=== PATIENT | female | born 1970 | race Caucasian/White ===

== ENCOUNTER 2021-04-21 10:36 | Emergency (ER) | payer MEDICARE, MEDICAID ==
[2021-04-21 11:19] LABS: PTT,PARTIAL THROMBOPLSTIN TIME 21.7 SEC (23.2-32.3)
[2021-04-21 11:24] LABS: CHLORIDE,CL 106 mEq/L (98-106); SODIUM,NA 145 mEq/L (136-145)
--- NOTE | 2021-04-21 12:09 | EDM.PDOC ---
ED HPI GENERAL MEDICAL PROBLEM - General Chief Complaint: General Stated Complaint: RT SIDE OF FACE DOESN'T LOOK RIGHT Time Seen by Provider: 04/21/21 11:15 Source of Information: Reports: Patient, RN History Limitations: Reports: No Limitations - History of Present Illness INITIAL COMMENTS - FREE TEXT/NARRATIVE: Pt states that she noted that she felt off balance and would go to the left yesterday after noon about 3-4 pm. She didnt think much off it until she woke up this morning and noted that she has left eye drooping and couldn't see as well out of the left lateral vision. She has also noted some decrease in sensation to the left side of face, Has difficulty with finger to nose using the left side arm versus the right side. When having her walk down the hallway she did have some difficulty with going to the left side. She is alert and oriented. NIHSS at this time is 5. She does feel that she is under a lot of stress as today is the 1 year anniversary of the suicide of her daughter. She denies any previous stroke. No family history of strokes. Onset: Gradual Onset Date: 04/20/21 Onset Time: 15:00 Location: Reports: Face, Upper Extremity, Left, Lower Extremity, Left Associated Symptoms: Denies: Confusion, Headaches - Related Data Allergies Allergy/AdvReac Type Severity Reaction Status Date / Time latex Allergy Rash Verified 04/21/21 11:06 morphine Allergy Cannot Verified 04/21/21 11:06 Remember Home Meds: Home Meds Azelastine HCl 137 mcg NS BID 04/21/21 [History] Baclofen 10 mg PO BID 04/21/21 [History] Brexpiprazole [Rexulti] 2 mg PO DAILY 04/21/21 [History] Cholecalciferol (Vitamin D3) [Vitamin D3] 5,000 unit PO DAILY 04/21/21 [History] Desvenlafaxine Succinate [Pristiq ER] 50 mg PO DAILY 04/21/21 [History] Esomeprazole Magnesium [Nexium] 40 mg PO DAILY 04/21/21 [History] Fexofenadine [Thania] 120 mg PO DAILY 04/21/21 [History] Gabapentin 12 ml PO TID 04/21/21 [History] LORazepam [Ativan] 0.5 mg PO BID PRN 04/21/21 [History] Mesalamine [Apriso] 0.75 gm PO DAILY 04/21/21 [History] Metoprolol Tartrate [Lopressor] 50 mg PO BID 04/21/21 [History] Modafinil [Provigil] 200 mg PO DAILY 04/21/21 [History] Pramipexole Di-HCl [Mirapex] 0.5 - 1 mg PO BEDTIME 04/21/21 [History] QUEtiapine Fumarate [Seroquel Xr] 50 mg PO 04/21/21 [History] Rimegepant Sulfate [Nurtec Odt] 75 mg PO DAILY PRN 04/21/21 [History] Topiramate [Topamax] 50 mg PO BID 04/21/21 [History] hydrOXYzine HCL [Atarax] 25 mg PO Q6H PRN 04/21/21 [History] traMADol [Ultram] 50 mg PO Q6H PRN 04/21/21 [History] traZODone 25 - 100 mg PO BEDTIME 04/21/21 [History] Past Medical History Respiratory History: Reports: Asthma (exercise induced and has inhaler), Other (See Below) (seasonal allergies) Gastrointestinal History: Reports: Other (See Below) (sphincter of victoria.) Genitourinary History: Reports: Other (See Below) Other Genitourinary History: bladder stimulator [employer] History: Reports: Endometriosis Musculoskeletal History: Reports: Back Pain, Chronic Neurological History: Reports: Headaches, Chronic (gets botox. last dose 4-6 weeks ago.) Psychiatric History: Reports: Anxiety, Depression - Past Surgical History GI Surgical History: Reports: Appendectomy, Cholecystectomy, Colon, ERCP, Other (See Below) (portal vein clot) Other GI Surgeries/Procedures: iliostomy with reversal Female Surgical History: Reports: Cystoscopy, Hysterectomy Musculoskeletal Surgical History: Reports: Arthroscopic Knee Social & Family History - Tobacco Use Tobacco Use Status *Q: Former Tobacco User Years of Tobacco use: 20 Used Tobacco, but Quit: Yes Month/Year Tobacco Last Used: 5 years ED ROS GENERAL - Review of Systems Review Of Systems: See Below Constitutional: Denies: Fever, Chills Respiratory: Denies: Shortness of Breath, Wheezing, Cough Cardiovascular: Denies: Chest Pain GI/Abdominal: Reports: No Symptoms : Reports: No Symptoms Musculoskeletal: Reports: No Symptoms Skin: Reports: No Symptoms Neurological: Reports: Numbness, Tingling, Difficulty Walking, Weakness. Denies: Confusion, Headache, Pre-Existing Deficit Psychiatric: Reports: No Symptoms ED EXAM, GENERAL - Physical Exam Exam: See Below Exam Limited By: No Limitations General Appearance: Alert, WD/WN, No Apparent Distress Eye Exam: Left Eye: Vision Changes (Has visual field defect on the left side.), Bilateral Eye: PERRL (Has drooping of her left eyelid) Ears: Normal External Exam, Normal Canal, Normal TMs Nose: Normal Inspection Throat/Mouth: Normal Inspection, Normal Oropharynx Head: Atraumatic, Normocephalic Neck: Normal Inspection, Supple, Non-Tender, Full Range of Motion Respiratory/Chest: No Respiratory Distress, Lungs Clear, Normal Breath Sounds Cardiovascular: Regular Rate, Rhythm, No Edema GI/Abdominal: Normal Bowel Sounds, Soft, Non-Tender, No Organomegaly Back Exam: Normal Inspection Extremities: Normal Inspection, Normal Range of Motion, Non-Tender, No Pedal Edema, Normal Capillary Refill Neurological: Alert, Oriented, Other (NIHSS is 5 currently.) Psychiatric: Normal Affect Skin Exam: Warm, Dry, Intact Course - Vital Signs Last Recorded V/S: Last Vital Signs Temp 96.2 F L 04/21/21 10:45 Pulse 100 04/21/21 10:45 Resp 18 04/21/21 10:45 BP 124/88 04/21/21 11:33 Pulse Ox 97 04/21/21 10:45 - Orders/Labs/Meds Orders: Active Orders 24 hr Category Date Time Status Head wo Cont [CT] Stat Exams 04/21/21 10:52 Taken UA RFX MEGAN AND CULT IF INDIC [URIN] Stat Lab 04/21/21 10:52 Ordered EKG 12 Lead [EK] Stat Ther 04/21/21 10:54 Ordered Labs: Laboratory Tests 04/21/21 04/21/21 04/21/21 Range/Units 11:00 11:00 11:00 WBC 3.7 L (4.0-11.0) 10^3/uL RBC 4.06 (4.00-5.50) x10^6/uL Hgb 12.4 (12.0-16.0) g/dL Hct 38.3 (37.0-47.0) % MCV 94.3 (83.0-97.0) fL MCH 30.5 (27.0-32.0) pg MCHC 32.4 (32.0-36.0) g/dL RDW Coeff of Xander 13.9 (11.0-15.0) % Plt Count 244 (150-400) 10^3/uL Immature Gran % (Auto) 0.3 (0.0-4.9) % Neut % (Auto) 60.7 (41-71) % Lymph % (Auto) 27.0 (24-44) % Murray % (Auto) 9.6 (0-10) % Eos % (Auto) 1.6 (0-6) % Baso % (Auto) 0.8 (0-1) % Neut # (Auto) 2.27 (1.80-8.00) x10^3/uL Lymph # (Auto) 1.01 (0.60-5.00) 10^3/uL Murray # (Auto) 0.36 (0.00-1.50) 10^3/uL Eos # (Auto) 0.06 (0.00-1.50) 10^3/uL Baso # (Auto) 0.03 (0.00-0.50) 10^3/uL Immature Gran # (Auto) 0.01 (0.00-0.49) 10^3/uL PT 9.4 L (9.7-12.3) SEC INR 0.85 L (0.92-1.18) APTT 21.7 L (23.2-32.3) SEC Sodium 145 (136-145) mEq/L Potassium 3.6 (3.5-5.0) mEq/L Chloride 106 (98-106) mEq/L Carbon Dioxide 27 (21-32) mmol/L BUN 11 (7-18) mg/dL Creatinine 0.9 (0.6-1.0) mg/dL Est Cr Clr Drug Dosing TNP Estimated GFR (MDRD) > 60 (>=60) mL/min Glucose 71 L (75-99) mg/dL Calcium 8.6 (8.4-10.1) mg/dL Creatine Kinase 135 (21-215) U/L Troponin I High Sens 4.1 (<=51) pg/mL - Re-Assessments/Exams Free Text/Narrative Re-Assessment/Exam: 04/21/21 [address] Adams neurologist at [facility] and he feels that she needs to be transferred. 1220 Through 1 call staff accepting physician is Dr Everett ER doctor. She will be transferred to [facility] per [facility] ambulance. 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 They felt that the cause for it was her multiple abdominal surgeries. 04/21/21 1255 Discussed risks of transfer could include worsening of her condition enroute, MVA enroute. Benefits of transfer is specialist in neurology, and further testing. Risk of staying would include worsening of condition. Pt agrees and wishes to transfer. Departure - Departure Time of Disposition: 12:55 Disposition: DC/Tfer to Acute Hospital 02 Condition: Fair Clinical Impression: Stroke Qualifiers: CVA mechanism: unspecified Qualified Code(s): I63.9 - Cerebral infarction, unspecified - Discharge Information *PRESCRIPTION DRUG MONITORING PROGRAM REVIEWED*: Not Applicable *COPY OF PRESCRIPTION DRUG MONITORING REPORT IN PATIENT KAILA: Not Applicable Additional Instructions: Transfer to [facility] per ALS. Sepsis Event Note (ED) - Evaluation Sepsis Screening Result: No Definite Risk - Focused Exam Vital Signs: Vital Signs Temp Pulse Resp BP Pulse Ox 04/21/21 11:33 124/88 04/21/21 10:45 96.2 F L 100 18 126/97 H 97 - Problem List & Annotations (1) Stroke SNOMED Code(s): 612975533 Code(s): I63.9 - CEREBRAL INFARCTION, UNSPECIFIED Status: Acute Priority: High Current Visit: Yes Qualifiers: CVA mechanism: unspecified Qualified Code(s): I63.9 - Cerebral infarction, unspecified - Problem List Review Problem List Initiated/Reviewed/Updated: Yes - My Orders Last 24 Hours: My Active Orders 04/21/21 10:52 Head wo Cont [CT] Stat UA RFX MEGAN AND CULT IF INDIC [URIN] Stat 04/21/21 10:54 EKG 12 Lead [EK] Stat - Assessment/Plan Last 24 Hours: My Active Orders 04/21/21 10:52 Head wo Cont [CT] Stat UA RFX MEGAN AND CULT IF INDIC [URIN] Stat 04/21/21 10:54 EKG 12 Lead [EK] Stat
== END 2021-04-21 13:00 ==
LOC: CC.ED 10:36
DX: I63.9 Cerebral infarction, unspecified (principal); Z91.040 Latex allergy status; Z88.5 Allergy status to narcotic agent; Z87.891 Personal history of nicotine dependence
CPT/HCPCS: 36415; 70450; 80048; 82550; 84484; 85025; 85610; 85730; 93005; 93010; 99284; 99285-25